=== PATIENT | female | born 1955 | race Caucasian/White ===

== ENCOUNTER 2021-06-30 07:40 | Outpatient (CLI) | payer MEDICARE, OTHER | END 2021-06-30 07:41 | disposition home or self-care (01) | LOC: CSHMAMMO 07:40 | PROVIDERS: ATTEND Obstetrics & Gynecology | DX: Z12.31 Encounter for screening mammogram for malignant neoplasm of breast (principal) | CPT/HCPCS: 77063; 77067 ==

== ENCOUNTER 2025-01-15 06:44 | Day surgery (SDC) | payer BC, MEDICARE ==
[2025-01-11 15:22] VITALS: BMI 22.6
[2025-01-15 08:22] LABS: Hematocrit 38.2 % (34.9-44.5); Hemoglobin 12.8 g/dL (12.0-15.5)
[2025-01-15 08:39] LABS: Anion Gap 12 mmol/L (10-20); BUN (Urea Nitrogen) 13 mg/dL (9.8-20.1); Calc. Creatinine Clearance 76 mL/min (70-130); Calcium 8.7 mg/dL (7.8-10.44); Carbon Dioxide 25 mmol/L (23-31); Chloride 108 mmol/L (98-107); Glucose 93 mg/dL (80-115); Potassium 4.1 mmol/L (3.5-5.1); Sodium 141 mmol/L (136-145)
[2025-01-15] MEDS ORDERED: Lidocaine 1% w/Epinephrine 1:200K 30 ML VIAL ONE (09:31)
[2025-01-15] MEDS ORDERED: Lidocaine 1% PF 5 ML VIAL ONE (09:34)
[2025-01-15] MEDS ORDERED: Rocuronium Bromide 10 MG/ML (10ML VIAL) ONE (09:34)
[2025-01-15] MEDS ORDERED: CEFAZOLIN 1 GM VIAL ONE (09:34)
[2025-01-15] MEDS ORDERED: Ondansetron PF 4 MG/2 ML Vial ONE ×2 (09:34→11:45)
[2025-01-15] MEDS ORDERED: SUGAMMADEX SODIUM 200 MG/2 ML VIAL ONE (09:34)
[2025-01-15] MEDS ORDERED: PROPOFOL 20 ML ONE ×2 (09:34→10:28)
[2025-01-15] MEDS ORDERED: HYDROmorphone 0.5 MG/0.5 ML SYRINGE ONE ×2 (11:49→11:59)
[2025-01-15] MEDS ORDERED: Ketorolac Tromethamine 30 MG (1 mL) VIAL ONE (12:07)
[2025-01-15] MEDS ORDERED: Famotidine/PF 20 mg/2ml Vial ONE (12:17)
[2025-01-15] MEDS ORDERED: hydrALAZINE 20 MG/ML VIAL ONE (12:17)
[2025-01-15] MEDS ORDERED: Dicyclomine 20 MG TAB PO SCH (13:00)
== END 2025-01-15 13:21 | disposition home or self-care (01) ==
LOC: CSHSDC 06:44
PROVIDERS: ATTEND Otolaryngology Otolaryngic Allergy
PROC: 0GTG0ZZ Resection of Left Thyroid Gland Lobe, Open Approach (ICD-10-PCS; principal; 2025-01-15)
PROC: 0GSM0ZZ Reposition Left Superior Parathyroid Gland, Open Approach (ICD-10-PCS; principal; 2025-01-15)
DX: E04.9 Nontoxic goiter, unspecified (principal); F17.210 Nicotine dependence, cigarettes, uncomplicated
CPT/HCPCS: 80048; 85014; 85018; 88305; 88307; 88331; J0360; J0690; J1100; J1171; J1885; J2704